=== PATIENT | male | born 1995 | race Hispanic/Latino ===

== ENCOUNTER 2018-03-04 22:57 | Emergency (ER) | payer OTHER ==
[2018-03-05] MEDS ORDERED: ORPHENADRINE CITRATE 30 MG/ML ML ONE (00:15)
[2018-03-05] MEDS ORDERED: KETOROLAC TROMETHAMINE 60 MG/2 ML VIAL ONE (00:15)
== END 2018-03-05 00:49 | disposition home or self-care (01) ==
LOC: EDH 22:57
DX: R07.89 Other chest pain (principal); Z72.0 Tobacco use
CPT/HCPCS: 71046; 93005; 96372 ×2; 99284; J1885; J2360

== ENCOUNTER 2020-02-17 03:06 | Emergency (ER) | payer OTHER ==
[2020-02-17] MEDS ORDERED: ACETAMINOPHEN EXTRA STRENGTH 500 MG TABLET ONE (03:26)
[2020-02-17 04:23] LABS: BASOPHILS % (AUTO) 0.4 % (0.0-5.0); EOSINOPHILS % (AUTO) 0.5 % (0.0-8.0); HEMATOCRIT 46.9 % (42-54); LYMPHOCYTES % (AUTO) 12.4 % (21.0-51.0); MEAN CORPUSCULAR HEMOGLOBIN 30.9 pg (27.0-33.0); MEAN CORPUSCULAR HGB CONC 33.9 g/dL (32.0-36.0); MEAN CORPUSCULAR VOLUME 91.2 fL (79-99); MONOCYTES % (AUTO) 6.8 % (3.0-13.0); NEUTROPHILS % (AUTO) 78.9 % (40.0-77.0); PLATELET COUNT (AUTO) 235 K/uL (130-400); RED BLOOD CELL COUNT(AUTO) 5.14 MIL/uL (4.50-6.20); RED CELL DISTRIBUTION WIDTH 12.1 % (11.0-15.5); WHITE BLOOD COUNT (AUTO) 15.8 K/uL (4.8-10.8)
[2020-02-17 04:26] LABS: APPEARANCE,URINE Clear (CLEAR); BILIRUBIN,URINE Negative (NEGATIVE); COLOR,URINE Yellow (YELLOW); GLUCOSE, URINE (UA) >=1000 mg/dL (NEGATIVE); KETONES,URINE Negative (NEGATIVE); LEUKOCYTE ESTERASE ,URINE Small (NEGATIVE); NITRATE,URINE Negative (NEGATIVE); OCCULT BLOOD,URINE Moderate (NEGATIVE); PH,URINE 5.5 (5.0-8.0); PROTEIN,URINE Trace mg/dL (NEGATIVE); UROBILINOGEN,URINE 0.2 mg/dL (0.2-1.0)
[2020-02-17 04:34] LABS: POTASSIUM 3.7 mmol/L (3.5-5.1); RAPID GROUP A STREP NEGATIVE (NEGATIVE)
[2020-02-17 04:40] LABS: ALBUMIN 3.8 g/dL (3.5-5.0); BILIRUBIN,TOTAL 0.6 mg/dL (0.2-1.0); TOTAL PROTEIN, SERUM 7.7 g/dL (6.0-8.3)
[2020-02-17 04:45] LABS: BACTERIA,URINE Rare /HPF (None Seen); SQUAMOUS EPITHELIAL CELL,UR Few /HPF (0-2)
[2020-02-17] MEDS ORDERED: SODIUM CHLORIDE 0.9% 100 ML IV ONE (05:32)
[2020-02-17] MEDS ORDERED: CEFTRIAXONE SODIUM 1 GM ONE (05:32)
== END 2020-02-17 06:16 | disposition home or self-care (01) ==
LOC: EDH 03:06
DX: N30.00 Acute cystitis without hematuria (principal); R50.9 Fever, unspecified; Z72.0 Tobacco use
CPT/HCPCS: 36415; 71046; 80053; 81001; 84145; 85025; 87088; 87804 ×2; 87880; 96374; 99284; J0696